=== PATIENT | female | born 1970 | race Two or more races ===

== ENCOUNTER 2019-03-18 20:04 | Emergency (ER) | payer MEDICAID ==
[~2019-03-18] VITALS: Ht 160 cm; Wt 77.1 kg
[2019-03-18 23:09] VITALS: BP 131/68
== END 2019-03-18 23:51 | disposition home or self-care (01) ==
LOC: ER 20:10
DX: L60.0 Ingrowing nail (principal); L03.032 Cellulitis of left toe; E11.9 Type 2 diabetes mellitus without complications

== ENCOUNTER 2025-01-06 19:49 | Emergency (ER) | payer MEDICAID ==
[~2025-01-06] VITALS: Ht 162.6 cm; Wt 74.3 kg
[2025-01-06 19:50] VITALS: BP 128/70; PULSE 81; RESP 17; TEMP 97.6; O2SAT 100
--- NOTE | 2025-01-06 20:42 | ED.PDOC ---
Eye-HPI HPI Comments 54 y/o [place] speaking F presents with c/c left eye redness and irritation. Patient endorses of 1x month history of symptoms after using eyedrops on both of her eyes. No endorsed trauma, injury, or previous history of similar symptoms in the past. She states on having intermittent sensations of "something in [her] eye." Denies any vision changes, headache, fever, chills, or further associated symptoms. Vital signs were stable. Chief Complaint: Eye Problem Time Seen by MD: 20:30 Primary Care Provider: BHUPENDRA Reviewed Notes: Nurses Notes, Medications, Allergies Allergies: Coded Allergies: NO KNOWN ALLERGIES (Unverified , 03/18/19) Information Source: Patient Mode of Arrival: Ambulatory Timing: Weeks Duration: Since onset Quality: Red, FB sensation Eye Location: Left Conjunctiva: Location, White Onset: Spontaneous Past Medical History PAST MEDICAL HISTORY: DM Surgical History: Denies all surgeries [employer] History: No Pertinent [employer] History Family History Family History: Reviewed,noncontributory to illness, No family hx of Cancer, No family hx of DM, No family hx of Heart chiquis, No family hx of HTN, No family hx ofKidney chiquis, No family hx of Liver chiquis, No family hx of Lung chiquis, No family hx of Stroke Social History Smoker: Non-Smoker Alcohol: Denies ETOH Use Drugs: Denies Drug Use Lives In: Home Constitutional: denies: chills, diaphoresis, fatigue, fever, malaise, sweats, weakness, others EENTM: reports: others (Lesion on eye); denies: blurred vision, double vision, ear bleeding, ear discharge, ear drainage, ear pain, ear ringing, eye pain, eye redness, hearing loss, mouth pain, mouth swelling, nasal discharge, nose bleeding, nose congestion, nose pain, photophobia, tearing, throat pain, throat swelling, voice changes Respiratory: denies: cough, hemoptysis, orthopnea, SOB at rest, shortness of breath, SOB with excertion, stridor, wheezing, others Cardiovascular: denies: chest pain, dizzy spells, diaphoresis, Dyspnea on exertion, edema, irregular heart beat, left arm pain, lightheadedness, palpitations, PND, syncope, others Gastrointestinal: denies: abdomen distended, abdominal pain, blood streaked bowels, constipated, diarrhea, dysphagia, difficulty swallowing, hematemesis, melena, nausea, poor appetite, poor fluid intake, rectal bleeding, rectal pain, vomiting, others Genitourinary: denies: abnormal vagina bleeding, burning, dyspareunia, dysuria, flank pain, frequency, hematuria, incontinence, pain, , vagina discharge, urgency, others Neurological: denies: dizziness, fainting, headache, left sided numbness, left sided weakness, numbness, paresthesia, pre-existing deficit, right sided numbness, right sided weakness, seizure, speech problems, tingling, tremors, weakness, others Musculoskeletal: denies: back pain, gout, joint pain, joint swelling, muscle pain, muscle stiffness, neck pain, others Integumetry: denies: bruises, change in color, change in hair/nails, dryness, laceration, lesions, lumps, rash, wounds, others Allergic/Immunocompromised: denies: Difficulty Healing, Frequent Infections, Hives, Itching, others Hematologic/Lymphatic: denies: anemia, blood clots, easy bleeding, easy bruising, swollen glands, others Endocrine: denies: excessive hunger, excessive sweating, excessive thirst, excessive urination, flushing, intolerance to cold, intolerance to heat, unexplained weight gain, unexplained weight loss, others Psychiatric: denies: anxiety, bipolar disorder, depression, hopeless, panic disorder, schizophrenia, sleepless, suicidal, others All Other Systems: Reviewed and Negative (Comprehensive review of systems are negative unless otherwise stated in HPI) Physical Exam General Appearance: No Apparent Distress, Normal HEENT: Other (Patient has a pinguecula at the medial aspect of the left eye. Localized mild injection with tissue deposition.) Neck: Full Range of Motion, Non-Tender, Normal, Normal Inspection Respiratory: Chest Non-Tender, Lungs Clear, No Accessory Muscle Use, No Respiratory Distress, Normal Breath Sounds Cardiovascular: No Edema, No JVD, No Murmur, No Gallop, Normal Peripheral Pulses, Regular Rate/Rhythm Breast Exam: Deferred Gastrointestinal: No Organomegaly, Non Tender, No Pulsatile Mass, Normal Bowel Sounds, Soft Genitalia: Deferred Pelvic: Deferred Rectal: Deferred Extremities: No calf tenderness, Normal capillary refill, Normal inspection, Normal range of motion, Non-tender, No pedal edema Neurologic: Alert, No Motor Deficits, Normal Affect, Normal Mood, No Sensory Deficits Cerebellar Function: NOT DONE Reflexes: NOT DONE Skin: Dry, Normal Color, Warm Lymphatic: No Adenopathy Was a procedure done? Was a procedure done?: No EENT DIFF Eye: Other (Pinguecula, pterygium) X-Ray, Labs, Meds, VS Vital Signs Date Time Temp Pulse Resp B/P (MAP) Pulse Ox O2 Delivery O2 Flow Rate FiO2 01/06/25 19:50 97.6 81 17 128/70 100 97.6 X-Ray, Labs, Meds, VS Comment Patient displays a fairly text book pinguecula in the left eye. Advised patient I will give her some antibiotic drops to stave off any infective development, but this conditions going to require ophthalmology evaluation. Time of 1ST Reevaluation: 21:05 Reevaluation 1ST: Improved Consultation: PCP, Other (Ophthalmology) Patient Education/Counseling: Diagnosis, Treatment Family Education/Counseling: Diagnosis, Treatment, No Family Present SEPSIS Sepsis Screen Date sepsis recognized/suspect: Jan 06, 2025 Time Sepsis recognized/suspect: 1949 Recent Procedure: No On Antibiotic Therapy: No Respiratory Rate >20: No Heart Rate >90: No Temp<36 C (96.8 F) or >38.3 C: No SBP <90 or MAP <65 mmHG: No New Acute Mental Status Change: No Is the patient on CPAP, BIPAP,: No Vital Signs Date Time Temp Pulse Resp B/P (MAP) Pulse Ox O2 Delivery O2 Flow Rate FiO2 01/06/25 19:50 97.6 81 17 128/70 100 97.6 Departure 1 Departure Time of Disposition: 21:05 Impression: Primary Impression: Pinguecula of left eye Disposition: 01 HOME / SELF CARE / HOMELESS Condition: Stable Additional Instructions: Advised patient utilize antibiotics drops for the next few days, but patient needs to follow up with Ophthalmology for discussions related to her current condition and possible treatments. e-Prescriptions Azithromycin (Ophth) (Azasite) 1 % Maggie 2 DROP EACHEYE BID for 5 Days, #2.5 ML 0 Refills Prov: ALETHA SHIPLEY PAC 01/06/25 Discharged With: Self, Friend Critical Care Note Critical Care Time?: No Stability Stability form required: No Heart Score Heart Score: Heart Score Response (Comments) Value History N/A 0 EKG N/A 0 Age N/A 0 Risk Factors N/A 0 Troponin N/A 0 Total 0 I personally scribed for ALETHA SHIPLEY PAC ([email or web address]) on 01/06/25 at 20:42. Electronically submitted by Chandra Cervantes ([email or web address]). I personally scribed for ALETHA SHIPLEY PAC ([email or web address] on 01/06/25 at 20:49. Electronically submitted by Chandra Cervantes ([email or web address]). ALETHA SHIPLEY PAC Jan 06, 2025 20:42
[2025-01-06] MEDS ORDERED: AZIT4SOL EACHEYE (21:07)
== END 2025-01-06 22:21 | disposition home or self-care (01) ==
LOC: ER 19:49
DX: H11.152 Pinguecula, left eye (principal); E11.9 Type 2 diabetes mellitus without complications